=== PATIENT | male | born 1990 | race Two or more races ===

== ENCOUNTER → 2024-04-21 | Outpatient (BNVA) | payer OTHER, MEDICAID, SELFPAY | END | disposition home or self-care (01) | PROVIDERS: PCP Physician Assistant; Referring Provider Physician Assistant; Visit Provider Urology | DX: N40.0 Benign prostatic hyperplasia without lower urinary tract symptoms (principal); Z30.2 Encounter for sterilization | CPT/HCPCS: 81003; 99212; G0463 ==

== ENCOUNTER → 2024-05-12 | Outpatient (CLI) | payer OTHER, MEDICAID, SELFPAY ==
--- NOTE | 2024-05-12 09:30 | XR_ITS ---
Examination: Testicular sonography complete TECHNIQUE: Grayscale sonographic images testes with assessment arterial inflow venous outflow Doppler spectral analysis carful analysis Exam date and time: May 12, 2024 0949 hours INDICATIONS: History bilateral inguinal hernias, patient states swelling in the right groin region beginning one year ago FINDINGS: Right testis 4.4 x 2.8 x 3.0 cm Epididymis 34 mm 3.2 cm right epididymal cyst Arterial flow testicle. No testicular mass Large hydrocele Left testis 4.1 x 2.7 x 3.2 cm Epididymis 34 mm Arterial flow to the testicle. No testicular mass Large hydrocele No hernia noted IMPRESSION: No testicular torsion or testicular mass Large right epididymal cyst Left epididymitis Large bilateral hydroceles
== END | disposition home or self-care (01) ==
PROVIDERS: PCP Physician Assistant; Referring Provider Urology; Visit Provider Urology
DX: N50.3 Cyst of epididymis (principal); N45.1 Epididymitis; N43.3 Hydrocele, unspecified
CPT/HCPCS: 76870

== ENCOUNTER → 2024-07-22 | Outpatient (BNVA) | payer OTHER, MEDICAID, SELFPAY | END | disposition home or self-care (01) | PROVIDERS: PCP Physician Assistant; Referring Provider Physician Assistant; Visit Provider Urology | DX: N40.0 Benign prostatic hyperplasia without lower urinary tract symptoms (principal); N50.3 Cyst of epididymis; N43.3 Hydrocele, unspecified; Z30.2 Encounter for sterilization | CPT/HCPCS: 81003; 99212; G0463 ==